=== PATIENT | female | born 1955 | race Caucasian/White ===

== ENCOUNTER 2020-04-04 19:23 | Inpatient (IN) | payer MEDICARE, MEDICAID ==
[~2020-04-04] VITALS: Ht 162.6 cm; Wt 50.0 kg
--- NOTE | 2020-04-04 19:38 | NUR ---
Received report from SUDHEER Kang at [facility].
--- NOTE | 2020-04-04 21:40 | NUR ---
Pt arrived to medical unit room 316.
[2020-04-04 22:39] LABS: PROTHROMBIN TIME 10.7 SECONDS (9.7-12.8)
--- NOTE | 2020-04-04 22:45 | NUR ---
A/Ox4. Ambulatory and indepedent. C/O RUQ abdominal pain, rate 9/10, and headache, prn pain meds administered with relief. Denies nausea or any other discomfort. IV started 22G to RH, flushed, dressing CDI. IVF and meds started as ordered. Pt NPO, pt understands POC. Tele monitor in place. Pt cooperative with care. Questions answered. Call light within reach.
[2020-04-04] MEDS ORDERED: FOLIC ACID 11 MG/TA1 PO (22:53)
[2020-04-04] MEDS ORDERED: PREDNISONE 2.52.5 MG PO (22:53)
[2020-04-04] MEDS ORDERED: METHOTREXA2.5 MG/TAB PO (22:53)
[2020-04-04] MEDS ORDERED: CARTIA XT120 MG PO (22:54)
[2020-04-04] MEDS ORDERED: SYNTHROID0.112 MG/T PO (22:54)
[2020-04-04] MEDS ORDERED: FOSAMAX 70MG TA70 MG PO (22:54)
[2020-04-04] MEDS ORDERED: ZOCOR 10MG10 MG PO (22:55)
[2020-04-04] MEDS ORDERED: ANORO IH (22:55)
[2020-04-04] MEDS ORDERED: TYLENOL 325MG325 MG PO (22:55)
[2020-04-04] MEDS ORDERED: ADVIL200 MG PO (22:55)
[2020-04-04] MEDS ORDERED: RT ALBUTER2.5 MG/0.5 IH (22:56)
[2020-04-04] MEDS ORDERED: CALCIUM CITRATE1 TA1 PO (22:56)
[2020-04-04 22:57] VITALS: BP 90/60; PULSE 94; TEMP 97.7
[2020-04-04] MEDS ORDERED: VITAMIN PO (22:57)
[2020-04-04] MEDS ORDERED: [UNRECOGNIZED DRUG - OTHER] PO (22:57)
[2020-04-04 22:58] VITALS: BP 90/60; PULSE 94; TEMP 97.7
[2020-04-04 23:08] LABS: C-REACTIVE PROTEIN 3.5 mg/dL (0.0-0.9)
[2020-04-05] VITALS (11 sets, daily range): BP systolic 90–142; BP diastolic 47–76; PULSE 63–100; TEMP 97.7–98.6
[2020-04-05 00:46] LABS: COLLECTION METHOD CLEAN CATCH
[2020-04-05 00:57] LABS: PH 6 (5-8); SQUAMOUS EPITHELIAL 0-2 /hpf; URINE APPEARANCE Clear; URINE BACTERIA None Seen /hpf; URINE BILIRUBIN Negative (NEGATIVE); URINE BLOOD Negative (NEGATIVE); URINE COLOR Yellow; URINE GLUCOSE Negative (NEGATIVE); URINE KETONE Negative (NEGATIVE); URINE LEUKOCYTE ESTERASE Negative (NEGATIVE); URINE NITRATE Negative (NEGATIVE); URINE PROTEIN(semi-quant) Negative (NEGATIVE); URINE RBC 0-2 /hpf; URINE UROBILINOGEN Negative (NEGATIVE)
--- NOTE | 2020-04-05 06:24 | NUR ---
Pt made no complaints during the night. Meds administered. Call light within reach.
--- NOTE | 2020-04-05 06:55 | NUR ---
Report given to SUDHEER Evans.
[2020-04-05 07:10] LABS: BASO % 0.6 % (0.0-2.0); EOS # 0.2 (0.0-0.7); EOS % 2.9 % (0-4.0); GRAN # 4.8 (1.4-6.5); GRAN % 69.3 % (42.2-75.2); HEMOGLOBIN 10.7 g/dl (12.5-16.0); LYMPH # 1.1 (1.2-3.4); LYMPH % 16.3 % (20.0-51.0); MEAN CELL VOLUME 103 fl (80.0-100.0); MEAN CORPUSCULAR HEMOGLOBIN 34 pg (27.0-31.0); MEAN CORPUSCULAR HGB CONC 33 g/dl (33.0-37.0); MEAN PLATELET VOLUME 9.8 fl (7.4-10.4); MONO # 0.7 (0.1-0.6); PLATELET COUNT 494 K/mm3 (130-400); RED BLOOD COUNT 3.18 M/mm3 (4.10-5.30); REDCELL DISTRIBUTION WIDTH-CV 14.9 % (11.5-14.5)
[2020-04-05 07:11] LABS: ALBUMIN 3.1 gm/dL (3.5-5.0); BILIRUBIN,TOTAL 0.8 mg/dL (0.0-1.0); CALCIUM 8.3 mg/dL (8.4-10.2); CREATININE, serum 0.65 (0.52-1.25); HEMATOCRIT 32.6 % (37.0-47.0); POTASSIUM 4.7 mmol/L (3.4-5.0); TOTAL PROTEIN 6.3 gm/dL (6.4-8.2)
--- NOTE | 2020-04-05 07:50 | NUR ---
CALLED BOTH DR. MONTIEL AND DR. COTTO TO INFORM THEM OF LOW BP THIS MORNING. MONITOR FOR NOW TO SEE IF RESOLVES ON ITS OWN.
--- NOTE | 2020-04-05 08:36 | NUR ---
PT IN BED, PAIN 3/10 ON R SIDE RADIATING TO BACK. DID NOT WANT ANY PAIN INTERVENTIONS AT THIS TIME. PT WARM TO TOUCH, ASSESSMENT PERFORMED, MEDICATIONS GIVEN WITH SIP OF WATER. WILL CONTACT PHYSICIAN ABOUT SWITCHING FLUIDS DUE TO NORMALAIZED POTASSIUM LEVEL. NO OTHER NEEDS AT THIS TIME.
--- NOTE | 2020-04-05 08:44 | NUR ---
PHYSICIAN NOTIFIED OF 4.7 POTASSIUM LEVEL, CHANGED FLUIDS TO NORMAL SALINE.
--- NOTE | 2020-04-05 10:07 | NUR ---
NS hung, pt taken down to procedure via cart.
--- NOTE | 2020-04-05 10:58 | NUR ---
REPORT RECIEVED FROM [facility], PT ON WAY UP TO THE FLOOR.
--- NOTE | 2020-04-05 11:15 | NUR ---
PT ARRIVED TO FLOOR, SETTLED INTO BED, RESTARTED FLUIDS, PT DENIES NEED FOR PAIN MEDICATION, WATER BROUGHT IN PER PT REQUEST, CALLED KITCHEN ABOUT GETTING A LUNCH TRAY. NO OTHER NEEDS AT THIS TIME.
--- NOTE | 2020-04-05 14:51 | NUR ---
Coupon Collection Clerk met with patient to discuss discharge planning. Patient lives in [place] with her Keith (ph#[phone]) and their thirteen year old granddaughter, Tayla. Patient sees Serene Lal APRN for primary care and obtains medications from [facility] in [place] with no difficulties. Patient has a cane she uses when her back bothers her and reports independence with ADLS. Patient does not have Advance Directives but would like to set up DPOA-HC. SW assisted patient in filling out DPOA form. Patient states she would like to designate her , Keith and her son, Chaka. Patient states her son Chaka is in halfway at [facility] but will be getting out in September. Patient verbalized understanding of what she is signing. JENI and JENI Sommers provided witness signature. SW provided original and copies to patient and placed copy in patient's chart. Patient plans to return home upon discharge. SW to continue to follow as needed.
--- NOTE | 2020-04-05 17:33 | NUR ---
PLAN TO HAVE CHOLESYSECTOMY TOMORROW, PT EXCITED TO DISCHARGE AFTER THAT PROCEDURE. ASKED ABOUT DIFFERENT LOW FAT FOODS, EXPLAINED SOME FOODS TO EAT AND SOME FOODS TO AVOID AND COOKING METHODS TO AVOID. PT STILL ON TELEMETRY, HOOKED UP TO FLUIDS, PT STABLE AND IN LITTLE PAIN AFTER ERCP. DENIES NEED FOR PAIN MEDICATION. DENIES NAUSEA AND VOMITING. NO OTHER NEEDS AT THIS TIME.
--- NOTE | 2020-04-05 19:54 | NUR ---
Lab called stating patient blood culture shows gram positive cocci with staph species. Yolanda CABRERA notified.
--- NOTE | 2020-04-05 21:00 | NUR ---
Resting in bed. Assessment complete. Lungs clear. Heart sounds normal. Bowels active x4. Pulses strong throughout. No edema noted. IV right hand without complications. Denies pain. Denies needs at this time. Call light in reach.
--- NOTE | 2020-04-05 23:38 | NUR ---
Resting in bed. Denies needs. Denies pain. Call light in reach.
[2020-04-06] VITALS (10 sets, daily range): BP systolic 100–155; BP diastolic 50–79; PULSE 58–96; TEMP 97.8–98.4
--- NOTE | 2020-04-06 02:19 | NUR ---
Resting in bed asleep. Call light in reach.
--- NOTE | 2020-04-06 06:09 | NUR ---
Patient had uneventful night. IV right hand leaking this AM and changed to left forearm. Denies needs. Consent signed. Call light in reach.
--- NOTE | 2020-04-06 06:40 | NUR ---
awake resting in bed, bedside shift report received from SUDHEER Hernadez
[2020-04-06 06:50] LABS: BASO # 0.1 (0.0-0.2); BASO % 0.8 % (0.0-2.0); EOS # 0.3 (0.0-0.7); EOS % 3.7 % (0-4.0); GRAN # 4.2 (1.4-6.5); GRAN % 54.4 % (42.2-75.2); LYMPH # 2.3 (1.2-3.4); LYMPH % 29.4 % (20.0-51.0); MEAN CELL VOLUME 104 fl (80.0-100.0); MEAN CORPUSCULAR HGB CONC 33 g/dl (33.0-37.0); MEAN PLATELET VOLUME 9.8 fl (7.4-10.4); MONO # 0.9 (0.1-0.6); MONO % 11.1 % (1.7-9.3); PLATELET COUNT 496 K/mm3 (130-400)
[2020-04-06 06:52] LABS: HEMATOCRIT 30.2 % (37.0-47.0); HEMOGLOBIN 9.9 g/dl (12.5-16.0); MEAN CORPUSCULAR HEMOGLOBIN 34 pg (27.0-31.0)
--- NOTE | 2020-04-06 06:57 | NUR ---
Report given to SUDHEER Roblero
[2020-04-06 07:02] LABS: CREATININE, serum 0.71 (0.52-1.25); POTASSIUM 4.1 mmol/L (3.4-5.0)
--- NOTE | 2020-04-06 07:20 | NUR ---
resting in bed, full assessment completed, see interventions for further info, denies pain or needs at this time
--- NOTE | 2020-04-06 10:15 | NUR ---
appears to be dozing, in bed with eyes closed, resp quiet and easy
--- NOTE | 2020-04-06 12:15 | NUR ---
to surgery per bed
--- NOTE | 2020-04-06 12:58 | NUR ---
shift report given to SUDHEER Obregon
[2020-04-06] MEDS ORDERED: MOTRIN 600600 MG/TAB PO (14:55)
[2020-04-06] MEDS ORDERED: NORCO 325 MG-51 TAB PO (14:57)
--- NOTE | 2020-04-06 16:19 | NUR ---
SW met with the patient to revisit the discharge plan of returning home. The patient does not have any questions or concerns about doing so. There are no additional needs at this time.
--- NOTE | 2020-04-06 18:07 | NUR ---
Patient laying in bed. A&Ox3. Complaints of pain in abdomen and head. Pain medication given when requested. VSS. IV CDI, fluids infusing. Lap sites abdomenx4 CDI. Patient standby assist to bathroom, tolerated ambulation well. No further needs expressed from patient. Patient instructed to call nursing staff for assistance with ambulation. Call light within reach
--- NOTE | 2020-04-06 20:29 | NUR ---
Resting in bed. Assessment complete. Lungs clear. Heart sounds normal. Bowels active x4. Pulses strong throughout. No edema noted. IV left forearm without complications. Reports 3/10 ABD pain. Denies needs for medication intervention at this time. Denies other needs. Call light in reach.
--- NOTE | 2020-04-06 22:35 | NUR ---
reported 7/10 ABD pain. Provided with PRN norco at patient request. Denies other needs at this time. Call light in reach.
--- NOTE | 2020-04-07 02:03 | NUR ---
Resting in bed asleep. Call light in reach.
[2020-04-07 03:32] VITALS: BP 122/88; PULSE 94; TEMP 98.7
--- NOTE | 2020-04-07 03:36 | NUR ---
Telemetry called stating patient going into tachy neville syndrome. 90s to 40s. Patient asymptomatic, VS stable. Spoke with Yolanda CABRERA. Will review telemetry strips in ICU and add cardiology consult.
--- NOTE | 2020-04-07 06:03 | NUR ---
Required x1 dose of norco for pain control throughout night. Otherwise uneventful night. Resting in bed this AM. Call light in reach.
--- NOTE | 2020-04-07 07:01 | NUR ---
Reports 5/10 ABD pain. Provided with CINDY العراقي.
--- NOTE | 2020-04-07 07:09 | NUR ---
Report given to SUDHEER Maurer
[2020-04-07 07:37] LABS: BASO % 0.2 % (0.0-2.0); GRAN # 7.5 (1.4-6.5); GRAN % 85.7 % (42.2-75.2); HEMOGLOBIN 10.4 g/dl (12.5-16.0); LYMPH # 0.6 (1.2-3.4); LYMPH % 6.4 % (20.0-51.0); MEAN CELL VOLUME 103 fl (80.0-100.0); MEAN CORPUSCULAR HEMOGLOBIN 34 pg (27.0-31.0); MEAN CORPUSCULAR HGB CONC 33 g/dl (33.0-37.0); MEAN PLATELET VOLUME 9.8 fl (7.4-10.4); MONO # 0.6 (0.1-0.6); MONO % 6.7 % (1.7-9.3); PLATELET COUNT 517 K/mm3 (130-400); RED BLOOD COUNT 3.08 M/mm3 (4.10-5.30); REDCELL DISTRIBUTION WIDTH-CV 14.4 % (11.5-14.5)
[2020-04-07 07:44] LABS: HEMATOCRIT 31.7 % (37.0-47.0)
[2020-04-07 07:51] LABS: ALBUMIN 3.3 gm/dL (3.5-5.0); BILIRUBIN,TOTAL 0.5 mg/dL (0.0-1.0); CALCIUM 7.8 mg/dL (8.4-10.2); CREATININE, serum 0.69 (0.52-1.25); TOTAL PROTEIN 6.5 gm/dL (6.4-8.2)
[2020-04-07 08:00] VITALS: BP 155/76; PULSE 81; TEMP 97.7
[2020-04-07] MEDS ORDERED: CEPHALEXIN500 M1 PO (11:24)
[2020-04-07 12:00] VITALS: BP 109/65; PULSE 80; TEMP 98.8
--- NOTE | 2020-04-07 14:08 | NUR ---
Ot assessment completed and charted, alert, oriented, roomair. Meds given as per DEC. I/V fluhsed without complication. No N/V/D, pain, numbness, tingling, SOB at this time as per pt. No further needs at this time.
--- NOTE | 2020-04-07 14:11 | NUR ---
Pt discharge instructions discussed and reviewed with patient who verbalized understanding. All questions answered. LFA IV dc'd w/o complications. No further needs expressed. Pt escorted out via WC by Laurita.
== END 2020-04-07 13:45 | disposition home or self-care (01) | DRG 418 ==
LOC: SURG 19:23 → MEDICAL 21:16
PROVIDERS: Nurse Practitioner Family; Physician Assistant; Surgery; ADMIT Student in an Organized Health Care Education/Training Program
PROC: 0FC98ZZ Extirpation of Matter from Common Bile Duct, Via Natural or Artificial Opening Endoscopic (ICD-10-PCS; 2020-04-05)
PROC: 0FCD8ZZ Extirpation of Matter from Pancreatic Duct, Via Natural or Artificial Opening Endoscopic (ICD-10-PCS; 2020-04-05)
PROC: BF11YZZ Fluoroscopy of Biliary and Pancreatic Ducts using Other Contrast (ICD-10-PCS; 2020-04-05)
PROC: BF13YZZ Fluoroscopy of Gallbladder and Bile Ducts using Other Contrast (ICD-10-PCS; 2020-04-06)
PROC: 0FT44ZZ Resection of Gallbladder, Percutaneous Endoscopic Approach (ICD-10-PCS; principal; 2020-04-06 12:30)
DX: K80.70 Calculus of gallbladder and bile duct without cholecystitis without obstruction (principal); E87.1 Hypo-osmolality and hyponatremia; R78.81 Bacteremia; E87.2 Acidosis; E78.5 Hyperlipidemia, unspecified; J44.9 Chronic obstructive pulmonary disease, unspecified; M06.9 Rheumatoid arthritis, unspecified; E03.9 Hypothyroidism, unspecified; E16.2 Hypoglycemia, unspecified; B95.8 Unspecified staphylococcus as the cause of diseases classified elsewhere; I65.29 Occlusion and stenosis of unspecified carotid artery; M51.36 Other intervertebral disc degeneration, lumbar region; D47.3 Essential (hemorrhagic) thrombocythemia; R00.0 Tachycardia, unspecified; R00.1 Bradycardia, unspecified; M81.0 Age-related osteoporosis without current pathological fracture; E87.6 Hypokalemia; F17.210 Nicotine dependence, cigarettes, uncomplicated; Z86.73 Personal history of transient ischemic attack (TIA), and cerebral infarction without residual deficits; Z90.710 Acquired absence of both cervix and uterus; Z79.2 Long term (current) use of antibiotics
CPT/HCPCS: 99223-AI; 99232-AI; 99233-AI; 99239; C1769; J0330; J0690; J1100; J1170; J1885; J2405; J2543; J2704; J3010; J3480; J7030; J7512; Q9967